=== PATIENT | female | born 1935 | race Caucasian/White ===

== ENCOUNTER → 2016-06-06 | Outpatient (CLI) | payer MEDICARE ==
[~2016-06-06] MED LIST: ADVI200C5 PO; ASPI1TAB69 PO; ATOR40TA16 PO; DIGO0.12 PO; HYDR12.57 PO; LEVO75TA3; MULT400T; NEXI20CA PO; OXYB5TAB10 PO; VALS1TAB65 PO
[2016-06-06 08:13] LABS: ALKALINE PHOSPHATASE 96 U/L (45-117); ALT (GPT) 25 U/L (10-53); ANION GAP 6 MEQ/L (5-15); AST (GOT) 14 U/L (15-37); BICARBONATE 30.7 MEQ/L (21.0-32.0); BLOOD UREA NITROGEN 13 MG/DL (7-18); CHLORIDE 104 MEQ/L (98-107); GLOMERULAR FILTRATION RATE 56 ML/MIN (>89); GLUCOSE,FASTING 94 MG/DL (74-99); HDL CHOLESTEROL 68.4 MG/DL (40.0-60.0); LDL CHOLESTEROL 71 MG/DL (0-99); SODIUM (NA) 141 MEQ/L (136-145); TOTAL BILIRUBIN ADULT 0.5 MG/DL (0.2-1.0)
[2016-06-06 13:02] LABS: HEMOGLOBIN A1a 0.9 %; HEMOGLOBIN A1b 1.8 %; HEMOGLOBIN Ao 84.5 %; HEMOGLOBIN LA1C 2.2 %; HEMOGLOBIN P3 4.2 %
== END ==
LOC: CLAB 07:24
PROVIDERS: ATTEND Family Medicine
DX: E11.9 Type 2 diabetes mellitus without complications (principal); E78.5 Hyperlipidemia, unspecified
CPT/HCPCS: 36415; 80053; 80061; 83036

== ENCOUNTER → 2017-06-20 | Outpatient (CLI) | payer MEDICARE ==
[~2017-06-20] MED LIST changes: -ADVI200C5 PO; -ASPI1TAB69 PO; +CEPH-460 PO; -DIGO0.12 PO; -HYDR12.57 PO; +LABE200T2 PO; +LEVO.075 PO; -LEVO75TA3; -MULT400T; -OXYB5TAB10 PO; +blood pressure med
[2017-06-20 08:38] LABS: ALBUMIN 3.4 GM/DL (3.4-5.0); AST (GOT) 12 U/L (15-37); BICARBONATE 28.2 MEQ/L (21.0-32.0); BLOOD UREA NITROGEN 16 MG/DL (7-18); CALCIUM 8.8 MG/DL (8.5-10.1); CHLORIDE 105 MEQ/L (98-107); GLOMERULAR FILTRATION RATE 53 ML/MIN (>89); GLUCOSE,FASTING 107 MG/DL (74-99); SODIUM (NA) 140 MEQ/L (136-145)
[2017-06-20 08:40] LABS: ALT (GPT) 21 U/L (10-53); CHOLESTEROL 233 MG/DL (120-200); TRIGLYCERIDES 177 MG/DL (42-150)
[2017-06-20 08:50] LABS: ALKALINE PHOSPHATASE 77 U/L (45-117); CHOLESTEROL/ HDL RATIO 4.39 RATIO; LDL CHOLESTEROL 145 MG/DL (0-99); TOTAL BILIRUBIN ADULT 0.4 MG/DL (0.2-1.0); TOTAL PROTEIN 6.9 GM/DL (6.4-8.2)
[2017-06-20 11:20] LABS: HEMOGLOBIN A1C 6.4 % (4.3-6.0)
== END ==
LOC: CLAB 07:18
PROVIDERS: ATTEND Nurse Practitioner
DX: N30.00 Acute cystitis without hematuria (principal); E78.2 Mixed hyperlipidemia; E11.9 Type 2 diabetes mellitus without complications
CPT/HCPCS: 36415; 80053; 80061; 82043; 83036; 84443; 87086